=== PATIENT | female | born 1945 | race Caucasian/White ===

== ENCOUNTER 2019-03-27 12:45 | Emergency (ER) | payer MEDICARE, OTHER ==
[2019-03-27 13:52] LABS: URINE BLOOD (Dip) POC Negative (NEGATIVE); URINE GLUCOSE (Dip) POC Negative (NEGATIVE); URINE KETONES (Dip) POC Negative (NEGATIVE); URINE LEUKOCYTE EST (Dip) POC Negative (NEGATIVE); URINE NITRITE (Dip) POC Negative (NEGATIVE); URINE TOTAL PROTEIN POC Negative (NEGATIVE)
[2019-03-27] MEDS: KETOROLAC 60 MG INJ IM (13:55)
== END 2019-03-27 14:56 | disposition home or self-care (01) ==
LOC: FTE 12:45
DX: M54.5 Low back pain (principal); I10 Essential (primary) hypertension
CPT/HCPCS: 81003; 96372; 99284-25